=== PATIENT | male | born 1955 | race Caucasian/White ===

== ENCOUNTER 2018-11-11 11:51 | Emergency (ER) | payer OTHER, SELFPAY ==
[2018-11-11] VITALS (15 sets, daily range): BP systolic 107–114; BP diastolic 63–75; PULSE 70–100; RESP 16–26; TEMP 36.7; O2SAT 98
--- NOTE | 2018-11-11 12:28 | W.ED.GENAD ---
Discharge Plan Disposition Patient Disposition: HOME Condition: Good Discharge Details Chief Complaint: Dizzy/Sync Clinical Impression: Episodic lightheadedness, Acute dehydration Primary Care Provider: Lance Butler ED Provider: Lui Kim Home Meds and New Rx's Prescriptions: No Action acyclovir 800 mg Tablet 800 mg PO DAILY RF: 0 levothyroxine 100 mcg Tablet 100 mcg PO DAILY RF: 0 simvastatin 20 mg Tablet 20 mg PO DAILY RF: 0 lisinopril 10 mg Tablet 10 mg PO DAILY RF: 0 omeprazole 20 mg Capsule,Delayed Release(Dr/Ec) 20 mg PO DAILY RF: 0 aspirin 81 mg Tablet,Chewable 81 mg PO DAILY RF: 0 allopurinol 300 mg Tablet 300 mg PO DAILY RF: 0 Discharge Instructions Instructions: Syncope (ED) Additional Instructions: Please follow-up with your primary care provider as soon as possible for reassessment of your Holter monitor. Please drink 10-12 cups of water per day. If you notice any worsening of your symptoms, or any new symptoms such as vomiting, diarrhea, fever, chills, shortness of breath, chest pain, numbness, weakness, or fainting , please return immediately to the emergency department for reevaluation. Please follow up with your primary care provider as soon as possible for reassessment and reevaluation. As always, it was a pleasure participating in your medical care today. 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 He presents today for a near syncopal episode that occurred while he was at an oncology visit. He was not getting blood drawn or exerting himself at that time. He had no associated red flags of chest pain, shortness of breath, numbness, tingling, vision changes. He did not fall, and he did not hit his head. Upon arrival to the ED the patient demonstrates normal vital signs, shows no signs of tachycardia, severe hypotension, tachypnea, fever, headache, chest pain shortness of breath or nuchal pain or nuchal rigidity. Neurologic exam is normal with no concerning abnormalities. Patient was given a liter of normal saline, and blood pressure remained stable, orthostatics showed no significant abnormality. Laboratory workup demonstrates a low white count at 1.03, platelets of 103, mild neutrophilia, normal electrolytes, stable renal function, negative troponin, slightly elevated TSH with a normal free T4. D-dimer was positive so CT angios of the chest was performed, this is negative for any acute process, pulmonary embolism or dissection or pneumonia. CT scan of the head was negative for any acute process. Patient's EKG demonstrates a small Q wave in lead III and aVF, however review of old EKGs from [facility] on 10/14/18 demonstrate these same findings. No other significant abnormalities, no significant interval abnormalities. Without actual syncope, a benign workup, the patient feeling very well I did offer observation versus discharge, and the patient made it very clear that he would like to go home. Patient is feeling well and ambulates well and demonstrates a continued normal neurologic exam. Patient will be discharged with close follow-up with his primary care provider. We will give him a Holter monitor for arrhythmia evaluation. I am unable to use a 0 patch because it is required location is right where he is receiving a port later this week at [facility] for future cancer management. I have extensively reviewed the treatment plan and discharge instructions with the patient and their family. I have addressed all patient concerns at this time. The patient and family was made aware of what symptoms to monitor for that would warrant a return to the emergency department. Discussed the plan with the patient and family, they demonstrate verbal understanding and agreement with our assessment and plan at this time. PE CT: CT angiography was performed with multi slice acquisition and multi planar and 3D reconstruction. CT scan of the chest was performed according to the pulmonary embolus protocol. The thoracic aorta is normal in caliber. No evidence of aneurysm or dissection. There is no evidence of a pulmonary embolus. The heart size is within normal limits. No significant pericardial effusion is seen. No evidence of right ventricular dysfunction is present. No significant thoracic adenopathy is appreciated. No pleural effusion or pneumothorax is present. Dependent atelectatic changes are seen in the lung bases. No focal consolidating infiltrates are seen in the lungs. The tracheobronchial tree is unremarkable. There is a calcified granuloma seen in the left upper lobe. Degenerative changes are seen in the spine. There does appear to be slight increased sclerosis of the right aspect of the 8th thoracic vertebra. IMPRESSION: 1. No evidence of a pulmonary embolus, thoracic aortic dissection or aneurysm. 2. No focal consolidating infiltrate in the lungs. 3. Findings of mild increased sclerosis of the 8th thoracic vertebral body. In the appropriate clinical setting, metastatic focus cannot be excluded among other etiologies. If followup is indicated, a bone scan may be considered. CT BRAIN: A noncontrast cranial CT was performed. The ventricular system is normal in appearance. There is no evidence of an intracranial mass lesion. There is no evidence of a subdural or epidural hematoma. No focal areas of decreased attenuation are seen. IMPRESSION: Normal noncontrast cranial CT. EKG 12: 8 Rate 74, OR 154, QTc 428, QRS 106, sinus rhythm, RSR in V1, less than 1 mm J-point elevation in V2, inverted T wave in lead III with a Q wave in lead III. Slightly enhanced S wave in lead I. Q wave in aVF. These findings are present on prior EKG from 10/14/18 HPI General Date/Time Provider Initiated Documentation: 11/11/18 11:59. HPI Narrative: This is a 63-year-old male with a past medical history of hypertension, high cholesterol, gout, and lymphoma with a spinal tumor in T5 through T8, who is currently seeing oncology. He has been on prednisone for the last 2 weeks for this. Is not currently on any chemotherapeutic drugs. Patient was visiting his oncologist today when while sitting he had an episode of lightheadedness, mild diaphoresis, but had no actual syncope, chest pain, shortness of breath, arm neck or shoulder pain. After that event which lasted less than 5 minutes the patient's symptoms completely resolved, he had no symptoms of palpitations, headache, vision changes, or new chest pain or shortness of breath. Currently the patient states that he feels absolutely fine. He denies any recent history of syncope, he denies any previous cardiac history. He has no other complaints or modifying factors at this time Related Data Home Medications Medication Instructions Recorded Confirmed acyclovir 800 mg PO DAILY 11/11/18 11/11/18 allopurinol 300 mg PO DAILY 11/11/18 11/11/18 aspirin 81 mg PO DAILY 11/11/18 11/11/18 levothyroxine 100 mcg PO DAILY 11/11/18 11/11/18 lisinopril 10 mg PO DAILY 11/11/18 11/11/18 omeprazole 20 mg PO DAILY 11/11/18 11/11/18 simvastatin 20 mg PO DAILY 11/11/18 11/11/18 Allergies Allergy/AdvReac Type Severity Reaction Status Date / Time No Known Allergies Allergy Unverified 11/11/18 12:00 General Stated Complaint: Dizzy/Sync SINA: 2 Review of Systems Review of Systems All systems reviewed & are unremarkable except as noted in HPI and below PFSH Social History Smoking and Tabacco status: Never Exam Narrative Exam Narrative: 1.Const: Well-nourished, Well-developed, appearing stated age 2.Eyes: PERRL, no conjunctival injection, and symmetrical lids. 3.ENT: Atraumatic external nose and ears. Slightly dry MM. Neck: Symmetric, trachea midline, No thyromegaly. 4.CVS: +S1/S2, No murmurs or gallops. Peripheral pulses 2+ and equal in all extremities. Brisk capillary refill in all extremities. 5.RESP: Unlabored respiratory effort. Clear to auscultation bilaterally. No wheezes rales or rhonchi 6.GI: Soft, Nontender/Nondistended, No hepatosplenomegaly. No guarding or rebound. 7.MSK: Normocephalic/Atraumatic, Extremities w/o deformity or ttp No cyanosis or clubbing, Normal movement of all extremities 8.Skin: Warm, Dry. No rashes or lesions. 9.Neuro: acls specialist II-XII grossly intact. Sensation grossly intact, no focal neurologic deficits. All 6 cardinal planes of vision are fully intact. No evidence of rotatory or vertical nystagmus. The patient demonstrated a normal [id number], good dexterity. There was no evidence of dysdiadochokinesia. Patient was able to ambulate without difficulty. There was no wide-based gait. Romberg, and [id number] are both normal on testing. Sensation was intact bilaterally as well as muscle strength bilaterally for all extremities. Patient was able to verbalize butter cup with no slurring, or miss pronunciation. Cerebellar function testing is normal. The patient demonstrates a normal hints exam with no findings concerning for a central event. No vertical nystagmus. The head impulse test is negative for any significant central abnormality. Normal test of skew. No suggestion of a central cerebellar event. 10.Psych: (AAO) x3. Appropriate mood and affect Course Vital Signs Temperature 36.7 C 11/11/18 11:55 Pulse 82 11/11/18 11:55 Respiratory Rate 19 11/11/18 11:55 Blood Pressure 107/66 11/11/18 11:55 Pulse Oximetry 98 11/11/18 11:55 Temperature 36.7 C 11/11/18 11:55 Temperature Source Temporal Artery Scan 11/11/18 11:55 Pulse 82 11/11/18 11:55 Respiratory Rate 20 11/11/18 12:03 Respiratory Effort Non-Labored 11/11/18 12:03 Respiratory Depth Normal 11/11/18 12:03 Respiratory Pattern Normal 11/11/18 12:03 Blood Pressure 107/66 11/11/18 11:55 Pulse Oximetry 98 11/11/18 11:55 Oxygen Delivery Method Room Air 11/11/18 11:55 Oxygen Flow Rate 0 11/11/18 11:55 Pain Level 0 11/11/18 11:55
[2018-11-11] MEDS: Normal Saline 1,000 ML 1000 ML IV (12:36)
[2018-11-11 12:37] LABS: Abs Immature Grans 0.13 k/cumm (0.0-0.09); HCT 42.1 % (40.0-50.0); HGB 14.6 g/dL (13.5-17.5); Mean Corp. HGB Concentration 34.7 g/dL (32.0-36.0); Mean Corpuscular Hemoglobin 31.3 pg (27.0-33.0); Mean Corpuscular Volume 90.1 fL (80-95); Mean Platelet Volume 10.8 fL (8.0-11.0); Platelet Count 103 x1000/uL (130-400); RBC 4.67 m/cumm (4.50-6.00); RBC Distribution Width 13.8 % (11.8-14.1)
[2018-11-11 12:59] LABS: ALT 182 U/L (12-78); AST 31 U/L (15-37); Albumin 2.6 g/dL (3.4-5.0); Alkaline Phosphatase 167 U/L (46-116); Anion Gap 8.2 mmol/L (3-11); BUN 27 mg/dL (7-18); Bilirubin, Total 0.5 mg/dL (0.2-1.0); CO2 27.8 mmol/L (21.0-32.0); CREATININE 1.34 mg/dL (0.70-1.30); Calcium 8.4 mg/dL (8.5-10.1); Chloride 101 mmol/L (98-107); Estimated GFR 53.67 (mL/min/1.73m2); Glucose 199 mg/dL (70-100); Potassium 3.4 mmol/L (3.5-5.1); Sodium 137 mmol/L (136-145); TSH (W/Ref FT4) 4.98 uIU/mL (0.358-3.74); Total Protein 6.5 g/dL (6.4-8.2); Troponin I < 0.02 ng/mL (0.00-0.06)
[2018-11-11 13:09] LABS: D-Dimer 1042 ng/mlFEU (<500)
[2018-11-11 13:14] LABS: White Blood Cell Count 1.03 k/cumm (4.4-10.8)
[2018-11-11 13:15] LABS: Absolute Lymphocyte Count 0.39 k/cumm (1.2-3.4); Absolute Monocyte Count 0.12 k/cumm (0.11-0.7); Absolute Neutrophil Count 0.52 k/cumm (1.2-6.7); FREE T4 1.19 ng/dL (0.76-1.46)
[2018-11-11 13:16] LABS: Anisocytosis 1+; Diff Comment Manual Differential; Spherocytes 2+
--- NOTE | 2018-11-11 13:30 | DI.CT_ITS ---
SYMPTOMS/DIAGNOSIS: SYNCOPE, CANCER; ELEVATED D-DIMER, HYPOTENSION PE CT: CT angiography was performed with multi slice acquisition and multi planar and 3D reconstruction. CT scan of the chest was performed according to the pulmonary embolus protocol. The thoracic aorta is normal in caliber. No evidence of aneurysm or dissection. There is no evidence of a pulmonary embolus. The heart size is within normal limits. No significant pericardial effusion is seen. No evidence of right ventricular dysfunction is present. No significant thoracic adenopathy is appreciated. No pleural effusion or pneumothorax is present. Dependent atelectatic changes are seen in the lung bases. No focal consolidating infiltrates are seen in the lungs. The tracheobronchial tree is unremarkable. There is a calcified granuloma seen in the left upper lobe. Degenerative changes are seen in the spine. There does appear to be slight increased sclerosis of the right aspect of the 8th thoracic vertebra. IMPRESSION: 1. No evidence of a pulmonary embolus, thoracic aortic dissection or aneurysm. 2. No focal consolidating infiltrate in the lungs. 3. Findings of mild increased sclerosis of the 8th thoracic vertebral body. In the appropriate clinical setting, metastatic focus cannot be excluded among other etiologies. If followup is indicated, a bone scan may be considered. CT BRAIN: A noncontrast cranial CT was performed. The ventricular system is normal in appearance. There is no evidence of an intracranial mass lesion. There is no evidence of a subdural or epidural hematoma. No focal areas of decreased attenuation are seen. IMPRESSION: Normal noncontrast cranial CT. The findings were discussed with the Emergency Department on the date of the examination.
[2018-11-11] MEDS: Omnipaque 350 MG/ML 100 ML BTL IJ (14:05)
--- NOTE | 2018-11-16 11:12 | HOLTER_ITS ---
HOLTER MONITOR REPORT DATE OF DICTATION: November 16, 2018 48-hour study Baseline rhythm sinus. Rare single PAC. Five bursts of SVT, longest 4-beat duration, fastest 155 bpm. No atrial fibrillati on. Rare single PVC. No VT. No bradycardia. No symptoms. Average heart rate 93 bpm.
== END 2018-11-11 15:55 | disposition home or self-care (01) ==
PROVIDERS: Emergency Provider Student in an Organized Health Care Education/Training Program; PCP Internal Medicine
DX: R42 Dizziness and giddiness (principal); E86.0 Dehydration
CPT/HCPCS: 36415; 71275; 80053; 93005; 96360; 99285; 70450; 84439; 84443; 84484; 85025; 85379; 93010; 93225; J3490

== ENCOUNTER 2018-11-13 16:39 | Outpatient (CLI) | payer OTHER, SELFPAY | END 2018-11-13 16:59 | PROVIDERS: PCP Internal Medicine; Visit Provider Student in an Organized Health Care Education/Training Program | DX: R42 Dizziness and giddiness (principal); I47.1 Supraventricular tachycardia | CPT/HCPCS: 93226 ==

== ENCOUNTER 2018-12-16 02:06 | Outpatient (RCR) | payer OTHER, SELFPAY ==
[2018-12-09] MEDS: Normal Saline Flush 10 ML SYR IVP (14:10)
[2018-12-09] MEDS: Heparin 500 UNITS/5 ML SYRINGE IV (14:10)
[2018-12-09 14:39] LABS: Abs Immature Grans 0.97 k/cumm (0.0-0.09); Absolute Monocyte Count 0.87 k/cumm (0.11-0.7); HCT 29.2 % (40.0-50.0); HGB 10.2 g/dL (13.5-17.5); Mean Corp. HGB Concentration 34.9 g/dL (32.0-36.0); Mean Corpuscular Hemoglobin 31.6 pg (27.0-33.0); Mean Corpuscular Volume 90.4 fL (80-95); Mean Platelet Volume 10.6 fL (8.0-11.0); RBC 3.23 m/cumm (4.50-6.00); RBC Distribution Width 15.5 % (11.8-14.1); White Blood Cell Count 7.91 k/cumm (4.4-10.8)
[2018-12-09 14:47] LABS: ALT 48 U/L (12-78); AST 21 U/L (15-37); Albumin 3.4 g/dL (3.4-5.0); Alkaline Phosphatase 187 U/L (46-116); Anion Gap 12.7 mmol/L (3-11); BUN 15 mg/dL (7-18); Bilirubin, Total 0.4 mg/dL (0.2-1.0); CO2 25.3 mmol/L (21.0-32.0); CREATININE 1.08 mg/dL (0.70-1.30); Calcium 8.8 mg/dL (8.5-10.1); Chloride 102 mmol/L (98-107); Glucose 111 mg/dL (70-100); LDH 337 U/L (85-227); Potassium 3.8 mmol/L (3.5-5.1); Sodium 140 mmol/L (136-145); Total Protein 7.2 g/dL (6.4-8.2)
[2018-12-09 15:06] LABS: Absolute Neutrophil Count 6.01 k/cumm (1.2-6.7); Platelet Count 213 x1000/uL (130-400)
[2018-12-09 15:07] LABS: Absolute Lymphocyte Count 0.32 k/cumm (1.2-3.4); Atypical Lymphocytes % 1
[2018-12-09 15:10] LABS: Anisocytosis 1+; Diff Comment Manual Differential; Nucleated RBC 1 /100WBC; Poikilocytes 1+; Polychromasia Present
[2018-12-16] MEDS: Normal Saline Flush 10 ML SYR IVP (10:25)
[2018-12-16 10:49] LABS: Abs Immature Grans 0.44 k/cumm (0.0-0.09); HCT 29.5 % (40.0-50.0); Mean Corp. HGB Concentration 33.9 g/dL (32.0-36.0); Mean Corpuscular Hemoglobin 31.6 pg (27.0-33.0); Mean Corpuscular Volume 93.4 fL (80-95); Mean Platelet Volume 10.2 fL (8.0-11.0); Platelet Count 274 x1000/uL (130-400); RBC 3.16 m/cumm (4.50-6.00); RBC Distribution Width 18.9 % (11.8-14.1)
[2018-12-16 11:00] LABS: Absolute Basophil Count 0.09 k/cumm (0.0-0.2); Absolute Lymphocyte Count 0.71 k/cumm (1.2-3.4); Absolute Monocyte Count 1.07 k/cumm (0.11-0.7)
[2018-12-16 11:01] LABS: Anisocytosis 2+; Diff Comment Manual Differential; Poikilocytes 1+; Polychromasia Present
[2018-12-16 11:11] LABS: ALT 44 U/L (12-78); AST 25 U/L (15-37); Albumin 3.5 g/dL (3.4-5.0); Alkaline Phosphatase 176 U/L (46-116); Anion Gap 10.8 mmol/L (3-11); BUN 16 mg/dL (7-18); Bilirubin, Total 0.4 mg/dL (0.2-1.0); CO2 25.2 mmol/L (21.0-32.0); CREATININE 1.11 mg/dL (0.70-1.30); Calcium 8.8 mg/dL (8.5-10.1); Chloride 104 mmol/L (98-107); Glucose 100 mg/dL (70-100); LDH 319 U/L (85-227); Potassium 3.9 mmol/L (3.5-5.1); Sodium 140 mmol/L (136-145); Total Protein 7.1 g/dL (6.4-8.2)
== END 2018-12-20 23:59 | disposition home or self-care (01) ==
LOC: INF 02:06
PROVIDERS: PCP Internal Medicine; Visit Provider Internal Medicine Hematology & Oncology
DX: C85.90 Non-Hodgkin lymphoma, unspecified, unspecified site (principal); Z45.2 Encounter for adjustment and management of vascular access device
CPT/HCPCS: 36591; 80053; 83615; 85025

== ENCOUNTER 2019-01-06 00:44 | Outpatient (RCR) | payer OTHER, SELFPAY ==
[2019-01-06] MEDS: Normal Saline Flush 10 ML SYR IVP (07:00)
[2019-01-06 07:19] LABS: Abs Immature Grans 0.42 k/cumm (0.0-0.09); HCT 27.2 % (40.0-50.0); HGB 9.2 g/dL (13.5-17.5); Mean Corp. HGB Concentration 33.8 g/dL (32.0-36.0); Mean Corpuscular Hemoglobin 32.2 pg (27.0-33.0); Mean Corpuscular Volume 95.1 fL (80-95); Mean Platelet Volume 9.4 fL (8.0-11.0); Platelet Count 210 x1000/uL (130-400); RBC 2.86 m/cumm (4.50-6.00); RBC Distribution Width 19.2 % (11.8-14.1); White Blood Cell Count 5.33 k/cumm (4.4-10.8)
[2019-01-06 07:31] LABS: ALT 111 U/L (12-78); AST 28 U/L (15-37); Albumin 3.6 g/dL (3.4-5.0); Alkaline Phosphatase 169 U/L (46-116); Anion Gap 13.9 mmol/L (3-11); BUN 28 mg/dL (7-18); Bilirubin, Total 0.5 mg/dL (0.2-1.0); CO2 22.1 mmol/L (21.0-32.0); CREATININE 1.24 mg/dL (0.70-1.30); Calcium 8.7 mg/dL (8.5-10.1); Chloride 100 mmol/L (98-107); Estimated GFR 58.69 (mL/min/1.73m2); Glucose 266 mg/dL (70-100); LDH 386 U/L (85-227); Sodium 136 mmol/L (136-145); Total Protein 7.2 g/dL (6.4-8.2)
[2019-01-06 07:49] LABS: Absolute Lymphocyte Count 0.53 k/cumm (1.2-3.4); Absolute Monocyte Count 0.48 k/cumm (0.11-0.7); Promyelocytes % 0 %
[2019-01-06 07:50] LABS: Anisocytosis 2+; Diff Comment Manual Differential; Hypochromasia 1+; Poikilocytes 1+; Polychromasia Present
== END 2019-01-19 23:59 | disposition home or self-care (01) ==
LOC: INF 00:44
PROVIDERS: PCP Internal Medicine; Visit Provider Internal Medicine Hematology & Oncology
DX: C85.90 Non-Hodgkin lymphoma, unspecified, unspecified site (principal); Z45.2 Encounter for adjustment and management of vascular access device
CPT/HCPCS: 36591; 80053; 83615; 85025

== ENCOUNTER 2019-02-17 01:16 | Outpatient (RCR) | payer OTHER, SELFPAY ==
[2019-01-27] MEDS: Normal Saline Flush 10 ML SYR IVP (07:41)
[2019-01-27 07:51] LABS: Abs Immature Grans 0.11 k/cumm (0.0-0.09); HCT 26.1 % (40.0-50.0); HGB 8.2 g/dL (13.5-17.5); Mean Corp. HGB Concentration 31.4 g/dL (32.0-36.0); Mean Corpuscular Hemoglobin 31.5 pg (27.0-33.0); Mean Corpuscular Volume 100.4 fL (80-95); Mean Platelet Volume 9.8 fL (8.0-11.0); Platelet Count 237 x1000/uL (130-400); White Blood Cell Count 5.21 k/cumm (4.4-10.8)
[2019-01-27 08:10] LABS: Absolute Basophil Count 0.05 k/cumm (0.0-0.2); Absolute Lymphocyte Count 0.31 k/cumm (1.2-3.4); Absolute Monocyte Count 0.83 k/cumm (0.11-0.7); Absolute Neutrophil Count 3.91 k/cumm (1.2-6.7); Anisocytosis 2+; Diff Comment Manual Differential
[2019-01-27 08:11] LABS: Basophilic Stippling Present; Hypochromasia 1+; Macrocytosis 1+; Microcytosis 1+; Poikilocytes 2+; Polychromasia Present
[2019-01-27 08:15] LABS: ALT 34 U/L (12-78); AST 22 U/L (15-37); Albumin 3.3 g/dL (3.4-5.0); Alkaline Phosphatase 125 U/L (46-116); Anion Gap 9.1 mmol/L (3-11); BUN 21 mg/dL (7-18); Bilirubin, Total 0.4 mg/dL (0.2-1.0); CO2 24.9 mmol/L (21.0-32.0); Calcium 8.6 mg/dL (8.5-10.1); Chloride 104 mmol/L (98-107); Glucose 154 mg/dL (70-100); LDH 316 U/L (85-227); Potassium 3.8 mmol/L (3.5-5.1); Sodium 138 mmol/L (136-145); Total Protein 6.9 g/dL (6.4-8.2)
[2019-02-05] MEDS: Normal Saline Flush 10 ML SYR IVP (08:28)
[2019-02-05] MEDS: Heparin 500 UNITS/5 ML SYRINGE IV (08:29)
[2019-02-05 08:49] LABS: Abs Immature Grans 0.03 k/cumm (0.0-0.09); HCT 25.2 % (40.0-50.0); HGB 8.5 g/dL (13.5-17.5); Mean Corp. HGB Concentration 33.7 g/dL (32.0-36.0); Mean Corpuscular Hemoglobin 32.2 pg (27.0-33.0); Mean Corpuscular Volume 95.5 fL (80-95); Mean Platelet Volume 11.5 fL (8.0-11.0); RBC 2.64 m/cumm (4.50-6.00); RBC Distribution Width 15.9 % (11.8-14.1)
[2019-02-05 08:52] LABS: ALT 38 U/L (12-78); AST 19 U/L (15-37); Albumin 3.3 g/dL (3.4-5.0); Alkaline Phosphatase 131 U/L (46-116); Anion Gap 14.3 mmol/L (3-11); BUN 20 mg/dL (7-18); Bilirubin, Total 0.5 mg/dL (0.2-1.0); CO2 23.7 mmol/L (21.0-32.0); CREATININE 1.03 mg/dL (0.70-1.30); Calcium 8.8 mg/dL (8.5-10.1); Chloride 98 mmol/L (98-107); Glucose 163 mg/dL (70-100); LDH 242 U/L (85-227); Sodium 136 mmol/L (136-145); Total Protein 6.8 g/dL (6.4-8.2)
[2019-02-05 09:14] LABS: White Blood Cell Count 0.81 k/cumm (4.4-10.8)
[2019-02-05 09:15] LABS: Platelet Count 133 x1000/uL (130-400)
[2019-02-05 09:16] LABS: Absolute Basophil Count 0.01 k/cumm (0.0-0.2); Absolute Lymphocyte Count 0.19 k/cumm (1.2-3.4); Absolute Monocyte Count 0.19 k/cumm (0.11-0.7); Absolute Neutrophil Count 0.42 k/cumm (1.2-6.7)
[2019-02-05 09:17] LABS: Anisocytosis 2+; Diff Comment Manual Differential; Hypochromasia 1+; Macrocytosis 1+; Microcytosis 1+; Nucleated RBC 2 /100WBC; Poikilocytes 1+; Polychromasia Present
[2019-02-17] MEDS: Normal Saline Flush 10 ML SYR IVP (08:13)
[2019-02-17 08:14] LABS: Abs Immature Grans 0.16 k/cumm (0.0-0.09); HCT 27.4 % (40.0-50.0); HGB 9.1 g/dL (13.5-17.5); Mean Corp. HGB Concentration 33.2 g/dL (32.0-36.0); Mean Corpuscular Hemoglobin 31.4 pg (27.0-33.0); Mean Corpuscular Volume 94.5 fL (80-95); Mean Platelet Volume 10.1 fL (8.0-11.0); Platelet Count 158 x1000/uL (130-400); RBC Distribution Width 17.2 % (11.8-14.1); White Blood Cell Count 4.81 k/cumm (4.4-10.8)
[2019-02-17 08:27] LABS: ALT 40 U/L (12-78); AST 16 U/L (15-37); Albumin 3.3 g/dL (3.4-5.0); Alkaline Phosphatase 143 U/L (46-116); BUN 27 mg/dL (7-18); Bilirubin, Total 0.4 mg/dL (0.2-1.0); CREATININE 1.05 mg/dL (0.70-1.30); Chloride 101 mmol/L (98-107); Glucose 180 mg/dL (70-100); LDH 279 U/L (85-227); Potassium 4.1 mmol/L (3.5-5.1); Sodium 136 mmol/L (136-145); Total Protein 6.7 g/dL (6.4-8.2)
[2019-02-17 08:35] LABS: Absolute Basophil Count 0.05 k/cumm (0.0-0.2); Absolute Lymphocyte Count 0.34 k/cumm (1.2-3.4); Absolute Monocyte Count 0.91 k/cumm (0.11-0.7); Absolute Neutrophil Count 3.37 k/cumm (1.2-6.7)
[2019-02-17 08:36] LABS: Anisocytosis 2+; Diff Comment Manual Differential; Microcytosis 1+; Polychromasia Present
== END 2019-02-19 23:59 | disposition home or self-care (01) ==
LOC: INF 01:16
PROVIDERS: PCP Internal Medicine; Visit Provider Internal Medicine Hematology & Oncology
DX: C85.90 Non-Hodgkin lymphoma, unspecified, unspecified site (principal); Z45.2 Encounter for adjustment and management of vascular access device
CPT/HCPCS: 36591; 80053; 83615; 85025

== ENCOUNTER 2020-04-12 09:22 | Outpatient (CLI) | payer OTHER, SELFPAY ==
[2020-04-12 14:14] LABS: HCT 21.6 % (40.0-50.0); HGB 7.6 g/dL (13.5-17.5); Mean Corp. HGB Concentration 35.2 g/dL (32.0-36.0); Mean Corpuscular Hemoglobin 30.3 pg (27.0-33.0); Mean Corpuscular Volume 86.1 fL (80-95); Mean Platelet Volume 9.6 fL (8.0-11.0); RBC 2.51 m/cumm (4.50-6.00); RBC Distribution Width 14.2 % (11.8-14.1)
[2020-04-12 14:30] LABS: ALT 50 U/L (16-63); AST 24 U/L (15-37); Albumin 3.6 g/dL (3.4-5.0); Alkaline Phosphatase 218 U/L (46-116); Anion Gap 14.2 mmol/L (3-11); BUN 62 mg/dL (7-18); Bilirubin, Total 0.8 mg/dL (0.2-1.0); CO2 21.8 mmol/L (21.0-32.0); Calcium 8.9 mg/dL (8.5-10.1); Chloride 102 mmol/L (98-107); Estimated GFR 22.79 (mL/min/1.73m2); Glucose 109 mg/dL (74-106); Potassium 4.1 mmol/L (3.5-5.1); Sodium 138 mmol/L (136-145); Total Protein 7.4 g/dL (6.4-8.2)
[2020-04-12 14:45] LABS: Absolute Lymphocyte Count 0.27 k/cumm (1.2-3.4); Anisocytosis 2+; Diff Comment Manual Differential; Poikilocytes 1+; Polychromasia Present
[2020-04-12 14:46] LABS: Platelet Count 110 x1000/uL (130-400)
[2020-04-12 14:50] LABS: Absolute Neutrophil Count 0.01 k/cumm (1.2-6.7)
[2020-04-12 14:51] LABS: White Blood Cell Count 0.28 k/cumm (4.4-10.8)
== END 2020-04-12 09:42 ==
PROVIDERS: PCP Internal Medicine; Visit Provider Internal Medicine Hematology & Oncology
DX: C83.30 Diffuse large B-cell lymphoma, unspecified site (principal); C92.00 Acute myeloblastic leukemia, not having achieved remission
CPT/HCPCS: 36415; 80053; 86850; 86900; 86901; 85025